=== PATIENT | male | born 1980 | race African-American/Black ===

== ENCOUNTER 2023-11-20 10:01 | Inpatient (IN) ==
--- NOTE | 2023-11-20 10:35 | Emergency Department Note ---
Impression & Plan Hypertensive urgency, Acute hypokalemia, Heart palpitations ED Provider Note NAME: ALANA TANG AGE: 43 SEX: M : 1980 ARRIVES VIA: Walk-In INFORMANT: Patient, the patient's significant other ED PROVIDER(S): Grey Blanco DO CHIEF COMPLAINT: Palpitations HPI: The patient is a 43-year-old male who presented to the emergency department for an evaluation of hypertension and palpitations. The patient's had symptoms over the course of the last few days. He does have a history of hypertension which is not well-controlled especially recently. He was seen in our facility yesterday for similar complaints. At that time he had his lisinopril increased to 20 mg a day and he had metoprolol succinate 25 mg added at night. He has been compliant with this medication regimen but only had 1 dose of the beta- wenceslao so far. He denies having any headache. He does describe palpitations and some anterior chest pain. The patient has not been seen by his family doctor for the symptoms. ROS: See above HPI for pertinent positives & negatives. A total of 10 systems reviewed and were otherwise negative. PAST MEDICAL HISTORY: See Below PAST SURGICAL HISTORY: See Below FAMILY HISTORY: See Below SOCIAL HISTORY: See Below HOME MEDICATIONS: See Below ALLERGIES: See Below VITALS: See Below PHYSICAL EXAMINATION: GENERAL: The patient is awake and alert. He is somewhat anxious appearing. EYES: The conjunctivae are clear. The pupils are round and reactive. EARS, NOSE, MOUTH AND THROAT: The nose is without any evidence of any deformity. Mucous membranes are moist. Tongue is midline. NECK: The neck is nontender and supple. RESPIRATORY: Normal respiratory effort is noted there is no evidence of wheezing rhonchi or rales CARDIOVASCULAR: Regular rate and rhythm noted there no murmurs rubs or gallops normal S1 normal S2. GASTROINTESTINAL: The abdomen is soft. Abdomen is nontender. MUSCULOSKELETAL/EXTREMITIES: There is no evidence of gross deformity full range of motion is noted in the hips and shoulders. SKIN: There is no obvious evidence of any rash. There are no petechiae, pallor or cyanosis noted. NEUROLOGIC: Patient is awake alert and oriented x3 strength is symmetric patellar reflexes are 2+ bilaterally MEDICAL DECISION MAKING: The patient is a 43-year-old male who presented to the emergency department for an evaluation of elevated blood pressure. The patient does not have any focal neurologic deficits. EKG showed no significant ischemic changes compared to yesterday. I discussed the patient's laboratory and radiographic studies with him. He was treated with multiple doses of antihypertensive medication in the emergency department. He continues to have elevated blood pressure although his symptoms are somewhat improved. For this reason I discussed his condition with the [facility] They have agreed to evaluate the patient in the emergency department further management disposition. Triage Nursing notes reviewed. Prior medical records reviewed Vital Signs: reviewed and remarkable for elevated blood pressure. Differential diagnosis: Cardiac ischemia, aortic dissection, pulmonary embolism, pneumothorax, pneumonia, pericarditis, myocarditis, esophageal rupture, GERD, cholecystitis, pancreatitis, musculoskeletal, as well as other pathologies. ER treatment provided: See below Diagnostics interpreted by me: ECG: EKG was obtained in the emergency department. My interpretation is normal sinus rhythm at 86 bpm. LVH was noted by voltage criteria with nonspecific ST segment abnormalities. This was compared to a tracing from November 19, 2023. No changes were noted. Cardiac Monitoring: An order was placed for continuous cardiac monitoring. The monitor shows a rate of 75 bpm with sinus rhythm. Laboratory studies: As stated above and show below. Imaging studies: See below. Radiographic imaging was reviewed by myself Consultation(s): I discussed this case with [place] who is on-call for the [facility]. ED COURSE: Procedures: none Critical Care: I have personally spent greater than 35 minutes of critical care time in the direct management of this patient. This includes bedside care, interpretation of diagnostic studies, and testing, discussion with consultants, patient, and family members, and other required patient management activities. This 35 minutes is in excess of all separately billable procedures. Past Med/Surg History Medical History Heart palpitations Hypertension Social History Smoking Status: Never smoker Feels Safe at Home: Yes Allergies Allergies Allergy/AdvReac Type Severity Reaction Status Date / Time No Known Allergies Allergy Unverified 11/19/23 11:54 Home Meds Home Medications Medication Instructions Recorded Confirmed lisinopril 10 mg tablet 20 mg PO QAM 11/19/23 11/20/23 magnesium 250 mg tablet 250 mg PO HS 11/19/23 11/20/23 multivitamin 1 tab PO QAM 11/19/23 11/20/23 lisinopril 20 mg tablet 0 mg PO DAILY 11/20/23 11/20/23 Previous Rx's Medication Instructions Recorded metoprolol succinate 25 mg 25 mg PO QPM 16 days #16 tabs 11/19/23 tablet,extended release 24 hr Results & Data (ED) Vital Signs Vital Signs - 24 hr 11/20/23 10:05 11/20/23 10:26 11/20/23 10:30 Temperature 36.6 C Temperature Source Temporal Artery Scan Pulse Rate 92 H 83 79 Pulse Rate [Right Finger] Pulse Rate from SpO2 Sensor 79 Pulse Rhythm Pulse Rhythm [Right Finger] Pulse Strength [Right Finger] Respiratory Rate 20 17 Respiratory Effort / Characteristics Non-Labored Respiratory Depth Normal Blood Pressure 228/133 H 190/127 H Blood Pressure [Left Arm] Blood Pressure Mean 164 148 Blood Pressure Mean [Left Arm] Blood Pressure Position [Left Arm] Pulse Oximetry 97 97 Oxygen Delivery Method Room Air Sepsis Recent Fever Within 48 Hours No Sepsis New/Unexplained Change in Mental Status No Sepsis Action Taken by Nursing No Action Required 11/20/23 10:54 11/20/23 10:54 11/20/23 11:07 Temperature Temperature Source Pulse Rate 85 78 Pulse Rate [Right Finger] Pulse Rate from SpO2 Sensor 85 Pulse Rhythm Pulse Rhythm [Right Finger] Pulse Strength [Right Finger] Respiratory Rate 20 Respiratory Effort / Characteristics Respiratory Depth Blood Pressure 214/131 H 214/131 H 191/134 H Blood Pressure [Left Arm] Blood Pressure Mean 158 158 153 Blood Pressure Mean [Left Arm] Blood Pressure Position [Left Arm] Pulse Oximetry 95 Oxygen Delivery Method Sepsis Recent Fever Within 48 Hours Sepsis New/Unexplained Change in Mental Status Sepsis Action Taken by Nursing 11/20/23 12:00 11/20/23 12:00 11/20/23 12:01 Temperature Temperature Source Pulse Rate 88 85 Pulse Rate [Right Finger] Pulse Rate from SpO2 Sensor 89 85 Pulse Rhythm Pulse Rhythm [Right Finger] Pulse Strength [Right Finger] Respiratory Rate 14 20 Respiratory Effort / Characteristics Respiratory Depth Blood Pressure 192/126 H 204/129 H Blood Pressure [Left Arm] Blood Pressure Mean 148 163 Blood Pressure Mean [Left Arm] Blood Pressure Position [Left Arm] Pulse Oximetry 94 97 Oxygen Delivery Method Sepsis Recent Fever Within 48 Hours Sepsis New/Unexplained Change in Mental Status Sepsis Action Taken by Nursing 11/20/23 12:01 11/20/23 12:03 11/20/23 12:03 Temperature Temperature Source Pulse Rate 81 Pulse Rate [Right Finger] Pulse Rate from SpO2 Sensor 86 Pulse Rhythm Pulse Rhythm [Right Finger] Pulse Strength [Right Finger] Respiratory Rate 18 Respiratory Effort / Characteristics Respiratory Depth Blood Pressure 208/127 H 181/120 H Blood Pressure [Left Arm] Blood Pressure Mean 166 139 Blood Pressure Mean [Left Arm] Blood Pressure Position [Left Arm] Pulse Oximetry 96 Oxygen Delivery Method Sepsis Recent Fever Within 48 Hours Sepsis New/Unexplained Change in Mental Status Sepsis Action Taken by Nursing 11/20/23 12:09 11/20/23 12:22 11/20/23 12:25 Temperature Temperature Source Pulse Rate 70 69 85 Pulse Rate [Right Finger] Pulse Rate from SpO2 Sensor 83 Pulse Rhythm Pulse Rhythm [Right Finger] Pulse Strength [Right Finger] Respiratory Rate 16 Respiratory Effort / Characteristics Respiratory Depth Blood Pressure 181/120 H 170/111 H 172/112 H Blood Pressure [Left Arm] Blood Pressure Mean 132 Blood Pressure Mean [Left Arm] Blood Pressure Position [Left Arm] Pulse Oximetry 95 Oxygen Delivery Method Sepsis Recent Fever Within 48 Hours Sepsis New/Unexplained Change in Mental Status Sepsis Action Taken by Nursing 11/20/23 13:00 11/20/23 13:18 11/20/23 13:33 Temperature Temperature Source Pulse Rate 79 69 75 Pulse Rate [Right Finger] Pulse Rate from SpO2 Sensor 77 Pulse Rhythm Pulse Rhythm [Right Finger] Pulse Strength [Right Finger] Respiratory Rate 14 Respiratory Effort / Characteristics Respiratory Depth Blood Pressure 178/121 H 170/111 H 175/111 H Blood Pressure [Left Arm] Blood Pressure Mean 140 Blood Pressure Mean [Left Arm] Blood Pressure Position [Left Arm] Pulse Oximetry 95 Oxygen Delivery Method Sepsis Recent Fever Within 48 Hours Sepsis New/Unexplained Change in Mental Status Sepsis Action Taken by Nursing 11/20/23 13:56 11/20/23 13:56 11/20/23 13:57 Temperature 36.6 C Temperature Source Oral Pulse Rate 75 Pulse Rate [Right Finger] 75 Pulse Rate from SpO2 Sensor Pulse Rhythm Regular Pulse Rhythm [Right Finger] Regular Pulse Strength [Right Finger] Normal Respiratory Rate 20 14 Respiratory Effort / Characteristics Non-Labored Respiratory Depth Normal Blood Pressure Blood Pressure [Left Arm] 175/111 H Blood Pressure Mean Blood Pressure Mean [Left Arm] 132 Blood Pressure Position [Left Arm] Semi-fowlers Pulse Oximetry 98 95 98 Oxygen Delivery Method Room Air Room Air Room Air Sepsis Recent Fever Within 48 Hours Sepsis New/Unexplained Change in Mental Status Sepsis Action Taken by Custodial Medications Current Medication List: was personally reviewed by me Laboratory Data Attestation: I reviewed the patient's lab results. 11/20/23 10:29 11/20/23 10:29 Lab Results 11/20/23 Range/Units 10:29 WBC 5.32 (4.8-10.8) K/ul RBC 5.54 (4.70-6.10) M/uL Hgb 15.9 (14.0-18.0) g/dl Hct 46.2 (42.0-52.0) % MCV 83.4 (80.0-100.0) fL MCH 28.7 (25.0-34.0) pg MCHC 34.4 (32.0-36.0) g/dL RDW Std Deviation 41.2 (36.4-46.3) fL RDW Coeff of Omid 13.5 (11.5-14.5) % Plt Count 223 (130-400) K/uL MPV 9.0 L (9.4-12.4) fL Immature Gran % (Auto) 0.2 % Neut % (Auto) 74.4 % Lymph % (Auto) 16.5 % [place] % (Auto) 7.9 % Eos % (Auto) 0.8 % Baso % (Auto) 0.2 % Neut # (Auto) 3.96 (1.40-6.50) K/uL Lymph # (Auto) 0.88 L (1.20-3.40) K/uL [place] # (Auto) 0.42 (0.11-0.59) K/uL Eos # (Auto) 0.04 (0.00-0.50) K/uL Baso # (Auto) 0.01 (0.00-0.20) K/uL Immature Gran # (Auto) 0.01 (0.01-0.20) K/uL Sodium 137 (136-145) mmol/L Potassium 3.2 L (3.5-5.1) mmol/L Chloride 101 (98-107) mmol/L Carbon Dioxide 28 (21-32) mmol/L Anion Gap 8 (3-11) BUN 10 (6-23) mg/dl Creatinine 1.05 (0.6-1.4) mg/dl Est Cr Clr Drug Dosing 123.7 ml/min Est GFR ( Amer) 101.0 ml/min Est GFR (Non-Af Amer) 87.1 ml/min BUN/Creatinine Ratio 9.5 L (10-20) Glucose 106 H (70-99(Fasting)) mg/dl Calcium 9.6 (8.6-10.3) mg/dl Total Bilirubin 0.6 (0.2-1.0) mg/dl AST 38 (13-39) U/L ALT 36 (7-52) U/L Alkaline Phosphatase 95 (34-104) U/L Troponin I High Sens 18.1 (0-20) pg/ml Total Protein 8.0 (6.0-8.3) gm/dl Albumin 4.5 (3.4-5.0) gm/dl Globulin 3.5 (2.5-4.0) gm/dl Albumin/Globulin Ratio 1.3 (0.9-2) Lipase 10 L (11-82) U/L Administered Medications Discontinued Medications Labetalol HCl (Labetalol Hcl Iv 5 Mg/Ml 20ml) 20 mg IV NOW STA Stop: 11/20/23 12:03 Last Admin: 11/20/23 12:09 Dose: 20 mg Documented By: HOLLY Co-signed By: JAMIE Labetalol HCl (Labetalol Hcl Iv 5 Mg/Ml 20ml) 10 mg IV NOW STA Stop: 11/20/23 12:54 Last Admin: 11/20/23 13:18 Dose: 10 mg Documented By: JAMIE Co-signed By: CHAD Lorazepam (Lorazepam 1 Mg/1 Ml Syr Ed Inj Use) 1 mg IV ONE STA Stop: 11/20/23 10:24 Last Admin: 11/20/23 10:55 Dose: 1 mg Documented By: JAMIE Imaging Data Attestation: I personally reviewed and interpreted this imaging study as follows: My Impression: 1 view chest x-ray was obtained in the emergency department. My interpretation is no free air or definite infiltrate, final report below. CT of the head was obtained in the emergency department. My interpretation is no intracranial hemorrhage or mass effect, final report below Radiologist's Impression: Chest X-Ray 11/20/23 10:13 XR chest 1V portable CLINICAL HISTORY: Chest pain, nonspecific TECHNIQUE: Single frontal radiograph of the chest was obtained. Comparison: Comparison is made to chest radiograph 11/19/2023 FINDINGS: No lines and tubes are seen. The cardiomediastinal silhouette is normal. The lungs are clear. No evidence of pleural effusion or pneumothorax. IMPRESSION: No acute chest disease. ACT 112: Negative or not required by law. Electronically signed by: Reji Sol M.D. 11/20/2023 11:[address] 11/20/23 10:24 CT SCAN OF THE BRAIN WITHOUT IV CONTRAST CLINICAL HISTORY: Dizziness. COMPARISON STUDY: No priors. TECHNIQUE: Unenhanced axial CT scan of the brain is performed from the vertex to the skull base. A dose lowering technique was utilized adhering to the principles of ALARA. CT DOSE: 703.85 mGy.cm FINDINGS: Brain parenchyma: The brain parenchyma is normal in appearance. There is no hemorrhage, mass effect, or evidence of acute territorial ischemia by CT criteria. Pike-white matter differentiation is preserved. No extra-axial fluid collection is seen. Ventricles, sulci, cisterns: Normal in configuration. Intracranial vasculature: The visualized intracranial vasculature at the skull base is normal in appearance. Calvarium: Unremarkable. Sinuses and mastoids: The visualized paranasal sinuses are clear. The mastoid air cells are well pneumatized. Orbits: The bony orbits are grossly intact. IMPRESSION: No acute intracranial abnormality. ACT 112: Negative or not required by law. Electronically signed by: Trever Mcgill M.D. 11/20/2023 11:27 AM Discharge Plan Visit Data Chief Complaint: Chest Pain Stated Complaint: CHEST PAINS, TROUBLE BREATHING ED Provider: Grey Blanco Discharge Problem: Hypertensive urgency, Acute hypokalemia, Heart palpitations Patient Disposition: Being Evaluated by Hospitalist Forms Stand Alone Forms: My [employer] Prescriptions Prescriptions: No Action multivitamin Tablet 1 tab PO QAM lisinopril 10 mg tablet 20 mg PO QAM Rx Instructions: taking two 10 mg tablets for 20 mg dose total until they [employer] his new script for 20 mg daily. magnesium 250 mg Tablet 250 mg PO HS metoprolol succinate 25 mg tablet extended release 24 hr 25 mg PO QPM 16 Days Qty: 16 0RF Patient Comments: Per , in 2019 PCP had pt on chlorthalidone 25 mg, pt took for awhile and bp went back down to normal. Rx Instructions: Per , pt started feeling bad again after taking medication last night. lisinopril 20 mg tablet 0 mg PO DAILY Rx Instructions: hasnt picked up yet. Referrals Referrals: PCP,NO [Physician] -
[2023-11-20 10:53] LABS: Basophils # (auto) 0.01 K/uL (0.00-0.20); Basophils % (auto) 0.2 %; Eosinophils # (auto) 0.04 K/uL (0.00-0.50); Eosinophils % (auto) 0.8 %; Hematocrit (blood only) 46.2 % (42.0-52.0); Hemoglobin 15.9 g/dl (14.0-18.0); Immature Granulocytes # (auto) 0.01 K/uL (0.01-0.20); Immature Granulocytes % (auto) 0.2 %; Lymphocytes # (auto) 0.88 K/uL (1.20-3.40); Lymphocytes % (auto) 16.5 %; Mean Corpuscular Hemoglobin 28.7 pg (25.0-34.0); Mean Corpuscular Hgb Conc 34.4 g/dL (32.0-36.0); Mean Corpuscular Volume 83.4 fL (80.0-100.0); Monocytes # (auto) 0.42 K/uL (0.11-0.59); Monocytes % (auto) 7.9 %; Neutrophils # (auto) 3.96 K/uL (1.40-6.50); Neutrophils % (auto) 74.4 %; Platelet Count 223 K/uL (130-400); RDW Coefficient of Variation 13.5 % (11.5-14.5); RDW Standard Deviation 41.2 fL (36.4-46.3); Red Blood Count 5.54 M/uL (4.70-6.10); White Blood Count 5.32 K/ul (4.8-10.8)
[2023-11-20] MEDS: LORazepam 1 MG/1 ML SYR ED Inj Use IV STA (10:55)
--- NOTE | 2023-11-20 11:10 | XRay Report ---
XR chest 1V portable CLINICAL HISTORY: Chest pain, nonspecific TECHNIQUE: Single frontal radiograph of the chest was obtained. Comparison: Comparison is made to chest radiograph 11/19/2023 FINDINGS: No lines and tubes are seen. The cardiomediastinal silhouette is normal. The lungs are clear. No evid ence of pleural effusion or pneumothorax. IMPRESSION: No acute chest disease. ACT 112: Negative or not required by law. Electronically signed by: Reji Sol M.D. 11/20/2023 11:09 AM
[2023-11-20 11:13] LABS: Albumin Globulin Ratio 1.3 (0.9-2); Albumin Level 4.5 gm/dl (3.4-5.0); BUN Creatinine Ratio 9.5 (10-20); Bilirubin,Total 0.6 mg/dl (0.2-1.0); Calcium 9.6 mg/dl (8.6-10.3); Creatinine Clr Calc Pharmacy 123.7 ml/min; Est GFR (Non-African American) 87.1 ml/min; Globulin 3.5 gm/dl (2.5-4.0); Potassium 3.2 mmol/L (3.5-5.1)
[2023-11-20 11:16] LABS: Troponin I High Sensitivity 18.1 pg/ml (0-20)
--- NOTE | 2023-11-20 11:29 | CT Scan Report ---
CT SCAN OF THE BRAIN WITHOUT IV CONTRAST CLINICAL HISTORY: Dizziness. COMPARISON STUDY: No priors. TECHNIQUE: Unenhanced axial CT scan of the brain is performed from the vertex to the skull base. A d ose lowering technique was utilized adhering to the principles of ALARA. CT DOSE: 703.85 mGy.cm FINDINGS: Brain parenchyma: The brain parenchyma is normal in appearance. There is no hemorrhage, mass effect, or evidence of acute territorial ischemia by CT criteria. Pike-white matter differentiation is preser taz. No extra-axial fluid collection is seen. Ventricles, sulci, cisterns: Normal in configuration. Intracranial vasculature: The visualized intracranial vasculature at the skull base is normal in appe arance. Calvarium: Unremarkable. Sinuses and mastoids: The visualized paranasal sinuses are clear. The mastoid air cells are well pneu matized. Orbits: The bony orbits are grossly intact. IMPRESSION: No acute intracranial abnormality. ACT 112: Negative or not required by law. Electronically signed by: Trever Mcgill M.D. 11/20/2023 11:27 AM
[2023-11-20] MEDS: LABETALOL HCL IV 5 MG/ML 20ML IV STA ×3 (12:09→21:21)
[2023-11-20] MEDS: hydrALAZINE HCL 20 MG/ML VIAL IV ONE (14:04)
--- NOTE | 2023-11-20 14:05 | History & Physical Report ---
Date of Service November 20, 2023 Assessment & Plan (1) Heart palpitations: (2) Hypertensive urgency: Plan: - Admit to tele for observation for r/o - Trend cardiac biomarkers, initial set was negative - EKG reviewed showing NSR, no previous EKG to compare to - Check 2 D echo and renal US to r/o renal artery stenosis causing HTN - Troponin from 11/18 of 18, again today 11/19 is 18, negative - Today in the ER the patient received labetalol IV 20 mg and 10 mg IV, hydralazine 5 mg once, and Ativan 1 mg IV. His blood pressure remains elevated once 168/117, will apply Nitropaste 0.5 inch. - Will start the patient on chlorthalidone 25 mg QAM and continue lisinopril 20 mg QAM - Patient was given a prescription for metoprolol 25 mg yesterday, x 1 reports that he did not feel well after taking it last evening--instead of metoprolol would consider propranolol for anxiety and the symptom of palpitations at night if there is no improvement with this medication regimen above. - Consider cardiology consultation - pt may require outpt zio patch monitor after discharge (3) Anxiety: Plan: - Would recommend outpatient counselor/therapist if there are no cardiac causes for such - Consider propranolol as above (4) Acute hypokalemia: Plan: - 3.2 on admission, replace via PO with 40 meq now, trend with am labs - Pt may need supplementation upon discharge (5) Obesity (BMI 30.0-34.9): Plan: - Pt physically fit, encourage continuation of exercise and diet - BMI of 32.6 DVT ppx: teds, scds Lines: 1 PIV FEN/GI: Heart healthy diet CODE: Full code Dispo: From home, likely to remain in the hospital x 1-2 days A total of 77 minutes were spent with greater than 50% of that time face to face with the patient, personally reviewing all current laboratories, imaging studies, past medication reconciliation, outpatient chart review, and discussion with specialists to collaborate care for the patient with attending. Please see attending documentation for corrections and/or additions. History of Present Illness Chief Complaint: Chest pain, palpitations Primary Care Provider: Jayson Casanova MD This is a 43 yo M with PMHx of obesity with BMI of 32, hypertension, who presents to the hospital with complaints of palpitation for the past few days. Pt was here in the ER yesterday where EKG was completed, BP was elevated, and pt was treated with lisinopril 20 mg and metoprolol succinate 25 mg QPM to help with palpitation sensation, and was discharged home. He is also previously prescribed chlorthalidone as outpatient years ago but is not taking this currently. 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 He reports "I feel like I am having a panic attack" during my interview. He states that his chest palpitations and heaviness last for about 1 minute earlier this morning dealing with stressful conversation at home, at that point he felt nauseous but did not vomit, patient went to a quieter space and did deep breathing and it resolved. He states that specifically has had palpitations in the past 4 days and is unable to sleep due to such. He reports having started to exercise and eat healthier since August, he is currently able to run 4 miles every other day on a treadmill with a running 5-minute walk 5-minute pattern for at least 40 minutes. He denies ever having any chest pain, palpitations or shortness of breath during these exercise routines. He does not smoke tobacco or marijuana, no illicit drug use, no alcohol use. Patient reports being told he had high blood pressure in his early 30s but was not on chronic blood pressure medication. He also notes that he has multiple family members with high blood pressure and they are maintained on medicine. Denies any primary relatives with SD/stroke. In regards to his anxiety, patient feels that this is acutely stressful right now, he has never been on any medication for anxiety or panic attack in the past. Patient denies anhedonia, suicidal or homicidal ideation. We discussed having a therapist versus a counselor at bedside, and he is open to the idea of discussion with licensed therapist/professional for being able to discuss his stressful life situations without affecting his spouse or his children. Allergies Allergy/AdvReac Type Severity Reaction Status Date / Time No Known Allergies Allergy Unverified 11/19/23 11:54 Home Medications Medication Instructions Recorded Confirmed Type lisinopril 10 mg tablet 20 mg PO QAM 11/19/23 11/20/23 History magnesium 250 mg tablet 250 mg PO HS 11/19/23 11/20/23 History metoprolol succinate 25 mg 25 mg PO QPM 16 days #16 tabs 11/19/23 11/20/23 Rx tablet,extended release 24 hr multivitamin 1 tab PO QAM 11/19/23 11/20/23 History Past Med/Surg History Medical History Heart palpitations Hypertension Family History Other Hypertension Social History (Updated 11/20/23 @ 15:14 by Latrice Cantor PA-C) Smoking Status: Never smoker Second Hand Exposure: No; Do You Dip or Chew Tobacco: No; Tobacco Cessation Education Requested by Patient: No Hx Alcohol Use: Yes Alcohol type: beer Hx Substance Use: No Preferred Language: Georgian Communication Ability: Effective Telegraph Office Telephone Clerk Required: No Beliefs That Will Affect Care: None Current Living Situation: Spouse and Family Other Information That Helps Us Care for You: No Feels Safe at Home: Yes Safety Concerns: Feels Safe At This Time Assistive Devices: Glasses Review of Systems Review of Systems: Constitutional: No fever, sweats or chills Eyes: No diplopia, no worsening or blurred vision ENT: normal hearing, no trouble swallowing Respiratory: No cough, sputum, dyspnea at rest or on exertion Cardiovascular: As per HPI, + palpitations Abdomen: No pain, + nausea with palpitations this morning, none currently no vomiting, diarrhea or constipation Musculoskeletal: No joint pain, calf pain, swelling Neurologic: No weakness, numbness/tingling, or balance problems Psychiatric: No anxiety or depression Skin: No rash or itch Physical Exam Physical Exam: General: awake, alert, no apparent distress, physically fit black male Head: Normocephalic, atraumatic ENT: PERRL, EOMI, no pharyngeal exudate, mucous membranes moist Chest: Clear to auscultation, on room air, no adventitious breath sounds Cardiac: Regular rate and rhythm, few extra beats, no murmur, no JVD, normal peripheral pulses, good capillary refill Abdominal: NABS x 4 quadrants, soft, nondistended, nontender to palpation, no rebound or guarding Extremities: Normal inspection, no peripheral edema or erythema, calfs nontender to palpation Psych: Normal mood and affect Neuro: AAO x 3, strength intact bilaterally and rated 5/5, no motor deficits, speech is clear, no peripheral sensory deficits Results & Data Results & Data Vital Signs (Past 12 Hours) Vital Signs Temp Pulse Pulse Resp BP BP Pulse Ox 11/20/23 13:57 98 11/20/23 13:56 36.6 C 75 14 175/111 H 95 11/20/23 13:56 75 20 98 11/20/23 13:33 75 175/111 H 11/20/23 13:18 69 170/111 H 11/20/23 13:00 79 14 178/121 H 95 11/20/23 12:25 85 16 172/112 H 95 11/20/23 12:22 69 170/111 H 11/20/23 12:09 70 181/120 H 11/20/23 12:03 81 18 96 11/20/23 12:03 181/120 H 11/20/23 12:01 208/127 H 11/20/23 12:01 85 20 97 11/20/23 12:00 204/129 H 11/20/23 12:00 88 14 192/126 H 94 11/20/23 11:07 78 191/134 H 11/20/23 10:54 85 20 214/131 H 95 11/20/23 10:54 214/131 H 11/20/23 10:30 79 17 190/127 H 97 11/20/23 10:26 83 11/20/23 10:05 36.6 C 92 H 20 228/133 H 97 O2 Del Method 11/20/23 13:57 Room Air 11/20/23 13:56 Room Air 11/20/23 13:56 Room Air 11/20/23 13:33 11/20/23 13:18 11/20/23 13:00 11/20/23 12:25 11/20/23 12:22 11/20/23 12:09 11/20/23 12:03 11/20/23 12:03 11/20/23 12:01 11/20/23 12:01 11/20/23 12:00 11/20/23 12:00 11/20/23 11:07 11/20/23 10:54 11/20/23 10:54 11/20/23 10:30 11/20/23 10:26 11/20/23 10:05 Room Air Laboratory Results 11/20/23 10:29 WBC 5.32 RBC 5.54 Hgb 15.9 Hct 46.2 MCV 83.4 MCH 28.7 MCHC 34.4 RDW Std Deviation 41.2 RDW Coeff of Omid 13.5 Plt Count 223 MPV 9.0 L Immature Gran % (Auto) 0.2 Neut % (Auto) 74.4 Lymph % (Auto) 16.5 [place] % (Auto) 7.9 Eos % (Auto) 0.8 Baso % (Auto) 0.2 Neut # (Auto) 3.96 Lymph # (Auto) 0.88 L [place] # (Auto) 0.42 Eos # (Auto) 0.04 Baso # (Auto) 0.01 Immature Gran # (Auto) 0.01 Sodium 137 Potassium 3.2 L Chloride 101 Carbon Dioxide 28 Anion Gap 8 BUN 10 Creatinine 1.05 Est Cr Clr Drug Dosing 123.7 Est GFR ( Amer) 101.0 Est GFR (Non-Af Amer) 87.1 BUN/Creatinine Ratio 9.5 L Glucose 106 H Calcium 9.6 Total Bilirubin 0.6 AST 38 ALT 36 Alkaline Phosphatase 95 Troponin I High Sens 18.1 Total Protein 8.0 Albumin 4.5 Globulin 3.5 Albumin/Globulin Ratio 1.3 Lipase 10 L Diagnostic Findings Chest X-Ray 11/20/23 10:13 XR chest 1V portable CLINICAL HISTORY: Chest pain, nonspecific TECHNIQUE: Single frontal radiograph of the chest was obtained. Comparison: Comparison is made to chest radiograph 11/19/2023 FINDINGS: No lines and tubes are seen. The cardiomediastinal silhouette is normal. The lungs are clear. No evidence of pleural effusion or pneumothorax. IMPRESSION: No acute chest disease. ACT 112: Negative or not required by law. Electronically signed by: Reji Sol M.D. 11/20/2023 11:[address] 11/20/23 10:24 CT SCAN OF THE BRAIN WITHOUT IV CONTRAST CLINICAL HISTORY: Dizziness. COMPARISON STUDY: No priors. TECHNIQUE: Unenhanced axial CT scan of the brain is performed from the vertex to the skull base. A dose lowering technique was utilized adhering to the principles of ALARA. CT DOSE: 703.85 mGy.cm FINDINGS: Brain parenchyma: The brain parenchyma is normal in appearance. There is no hemorrhage, mass effect, or evidence of acute territorial ischemia by CT criteria. Pike-white matter differentiation is preserved. No extra-axial fluid collection is seen. Ventricles, sulci, cisterns: Normal in configuration. Intracranial vasculature: The visualized intracranial vasculature at the skull base is normal in appearance. Calvarium: Unremarkable. Sinuses and mastoids: The visualized paranasal sinuses are clear. The mastoid air cells are well pneumatized. Orbits: The bony orbits are grossly intact. IMPRESSION: No acute intracranial abnormality. ACT 112: Negative or not required by law. Electronically signed by: Trever Mcgill M.D. 11/20/2023 11:27 AM Code Status & VTE Plan Code Status Full code-discussed with patient at bedside Supervising Physician Co-Signing Physician Notes Pt was seen and examined by myself, Miya Stratton MD on the day of service. Care was coordinated with Latrice Cantor PA-C. 43yo pleasant gentleman seen with and family at bedside. Notes he has been having episodes of fluttering in his chest, has chronic Hx of HTN but stopped taking his home chlorthalidone once they noted at home that his BPs were controlled on it. Was also found to be in hypertensive urgency. Believe he had a reaction to METOPROLOL AND LISINOPRIL, does not want to use these meds. They note that life at home can be a bit stressful, pt questioning whether he is having panic attacks. Hypertensive urgency- ekg, echo, renal US, consider nephrology consult. pt and agreeable to re-starting home chlorthalidone, noting it worked for them. Do not want an JOSE/ARB. Titrate dose as needed, consider addition of Calcium channel wenceslao if needed. Consider consult to Nephrology if persistently uncontrolled. On nitropaste acutely as well, pt states he has been on multiple medications recently and nothing seems to be working.. Palpitations: possibly in setting of above, vs anxiety component. Has been receiving doses of prn Ativan, consider mcc medication option such as an SSRI. Telemetry monitoring, will likely need a Zio patch on discharge. Cardiology consult recommended for further evaluation. Otherwise as above. I spent a total [id number] coordinating, documenting, and providing care for this patient excluding time spent in the performance of separately billed services
[2023-11-20] MEDS ORDERED: NITROGLYCERIN 2% OINTMENT 30GM TUBE EXT STA (15:13)
[2023-11-20] MEDS ORDERED: POTASSIUM CHLORIDE CRTAB 20 MEQ TABCR PO STA (15:22)
--- NOTE | 2023-11-20 16:15 | Electrocardiogram Report ---
Test Reason : Blood Pressure : / mmHG Vent. Rate : 090 BPM Atrial Rate : 090 BPM P-R Int : 174 ms QRS Dur : 088 ms QT Int : 358 ms P-R-T Axes : 031 -24 099 degrees QTc Int : 437 ms Normal sinus rhythm Possible Left atrial enlargement Left ventricular hypertrophy ( R in aVL ) T wave abnormality, consider lateral ischemia Abnormal ECG When compared with ECG of 19-NOV-2023 08:30, No significant change Confirmed by Grey Downing ([id number]) on 11/20/2023 4:14:58 PM Referred By: Jayson Casanova Confirmed By:Grey Downing
[2023-11-20] MEDS ORDERED: ONDANSETRON INJ 2 MG/ML 2 ML VIAL IV PRN (17:01)
[2023-11-20] MEDS: NITROGLYCERIN 2% OINTMENT 30GM TUBE EXT SCH (17:37)
[2023-11-20] MEDS: POTASSIUM CHLORIDE CRTAB 20 MEQ TABCR PO STA (17:37)
--- NOTE | 2023-11-20 17:47 | Ultrasound Report ---
US duplex renal artery CLINICAL HISTORY: Eval for cause of HTN COMPARISON STUDY: No previous studies for comparison. TECHNIQUE: Color and duplex Doppler sonography of the abdominal aorta and renal arteries was yunior d. FINDINGS: Peak systolic velocity within the abdominal aorta was 104 cm/s. The proximal right renal ar star was obscured. The peak systolic velocity within visualized portions of the right renal artery wa s 66 cm/s. Peak systolic velocity within the left renal artery was 100 cm/s. Segmental waveforms with in the kidneys were normal. Renal veins were patent. Exam is compromised by suboptimal penetration. IMPRESSION: Technically nondiagnostic evaluation for renal artery stenosis given obscuration of the proximal right renal artery. No elevated velocities within visualized portions of the renal arteries. ACT 112: Negative or not required by law. Electronically signed by: Tomas Davis M.D. 11/20/2023 5:44 PM
[2023-11-20] MEDS: CHLORTHALIDONE 25 MG TAB PO STA (18:08)
[2023-11-20] MEDS ORDERED: NITROGLYCERIN 2% OINTMENT 30GM TUBE EXT SCH (21:00)
[2023-11-20] MEDS: LORazepam 0.5 MG TAB PO STA (21:08)
[2023-11-20] MEDS: POTASSIUM CHLORIDE CRTAB 20 MEQ TABCR PO SCH (21:08)
[2023-11-20] MEDS: ACETAMINOPHEN 325 MG TAB PO PRN (21:12)
[2023-11-21] MEDS ORDERED: LORazepam 0.5 MG in SYRINGE 0.25 ML IV PRN (05:44)
[2023-11-21 07:03] LABS: Hematocrit (blood only) 43.3 % (42.0-52.0); Hemoglobin 15.3 g/dl (14.0-18.0); Mean Corpuscular Hgb Conc 35.3 g/dL (32.0-36.0); Mean Corpuscular Volume 82.2 fL (80.0-100.0); Mean Platelet Volume 9.6 fL (9.4-12.4); Platelet Count 237 K/uL (130-400); RDW Coefficient of Variation 13.7 % (11.5-14.5); RDW Standard Deviation 40.8 fL (36.4-46.3); Red Blood Count 5.27 M/uL (4.70-6.10); White Blood Count 4.71 K/ul (4.8-10.8)
[2023-11-21 07:28] LABS: BUN Creatinine Ratio 9.7 (10-20); Calcium 9.5 mg/dl (8.6-10.3); Chol HDL Ratio 4.3 (0-5); Creatinine Clr Calc Pharmacy 89.2 ml/min; Est GFR (African American) 68.9 ml/min; Est GFR (Non-African American) 59.5 ml/min; Potassium 3.3 mmol/L (3.5-5.1)
[2023-11-21 07:54] LABS: Estimated Average Glucose 108 mg/dl; Hemoglobin A1C 5.4 % (4.5-5.6)
[2023-11-21] MEDS: CHLORTHALIDONE 25 MG TAB PO SCH (08:48)
[2023-11-21] MEDS: NIFEdipine EXTENDED REL 30 MG TABCR PO SCH (08:52)
[2023-11-21] MEDS ORDERED: CHLORTHALIDONE 25 MG TAB PO SCH (09:00)
[2023-11-21] MEDS ORDERED: lisinopril 20 MG TAB PO SCH (09:00)
--- NOTE | 2023-11-21 09:03 | Nephrology Consultation ---
Date of Consultation November 21, 2023 Assessment & Plan (1) Hypertensive urgency: uncontrolled HTN w/ palpitations and anxiety; also w/ spontaneous /inappropriate hypokalemia and on ECG w/ LVH; will work to complete or at least start evaluation for end organ damage and consider given hypokalemia secondary causes. would not call this resistant HTN just yet and likely will not be able to parse that dx this admission but once anxiety controlled. -TTE notable for moderate CLVH -prot/creat ordered though will be abnormal w/ HTN -have ordered spot cecilia/renin ratio and saline suppression test to eval for aldosteronism this am but he refused labs >> explained rationale to pt > will have AM labs drawn tomorrow at 0800 and plan 4 hrs fluids and recheck labs after >continue nifedipine but dose increased to 90 mg daily today; continue coreg in lieu of metoprolol but dose increased to 25 mg bid today; continue standing K and increased to bid 40 mEq; continue chlorthalidone for now >recommend prn labetalol and hydralazine > ordered labetalol 10 mg IV q2h prn sbp > 160 and hold for HR <100; prn hdyralazine 10 mg IV q4h for sbp > 180 or if HR <100 for sbp > 160 >>>avoid spironolactone for now as it interferes w/ testing that will/must be done in AM -check TSH -monitor carefully for etoh w/drawal >>treat anxiety acutely >>AVOID clonidine d/t rebound HTN potential >>continue close monitoring; may need ICU transfer and HTN emergency tx if develops confusion, seizure, chest pain, dypsnea, focal numbness/weakness >goal is to bring SBP to 160s over DAYS Attempted to reach pt's at pt request to update her but no answer; left VM on secure line w/o pt identifiers. Care coordinated w/ Dr Lopez regarding dx, medications, aldosteronism w/u and we are in agreement. I spent a total of 70 minutes coordinating, documenting, and providing care for this patient excluding time spent in the performance of separately billed services. This included personally reviewing all current laboratories and imaging studies, medication reconciliation, outpatient chart review, and discussion with other physicians, with nursing, and as applicable with the patient and family (2) Abnormal renal function: his renal function has been labile these 3 days > with creatinine ranging from 1.1-1.4 and consistently w/ hyperkalemia. -reasonable for now to hold lisinopril -likely to worsen given HTN and given new chlorthalidone rx but would continue for now (3) Anxiety: he certainly has true HTN but his anxiety has prevented us from working it up or treating appropriately; low threshold for psych consultation versus starting medication here History of Present Illness Reason for Consultation: resistant HTN Requesting Physician: Dr Lopez Attending Physician: Twan Lopez MD History of Present Illness 43 y/o M whom I'm asked to see for resistant HTN was admitted yesterday afternoon w/ hypertensive urgency and palpitations. PMH includes at least 3 years of anxiety for which he's never had specific treatment or medication and which has been worse past few wks, also high blood pressure on outpatient monotherapy w/ lisinopril. He was also using EtOH every other day (3 beers daily) up until 2-3 weeks back but has since stopped. He was seen in ER on 11/18 with similar concerns > after no acute process was found, his lisinopril was increased to 20 mg daily and he was started on low dose long acting metoprolol. He took one dose of this but felt poorly and came back to ER for evaluation. He presented with a potassium of 3.1 and 3.2 on both days, incidentally. He is receiving chlorthalidone 50 mg qAM, 40 mEq daily K, nifedipine 60 mg daily, coreg 12.5 mg bid; his lisinopril has been stopped as has nitro paste. He had one dose of prn labetalol 10 mg iv; has also had ativan x 2 doses He is very anxious he tells me and feels even more anxious every time his BP is checked including in the hospital. The RN today opted to leave BP machine w/ cuff on pt and left the room so that he could hit the button to check bp once he was calmer. SBP have ranged 170s -210s; DBP 90-120s. I arranged for secondary HTN testing this AM including labs and fluids > but pt refused the labs d/t ongoing anxiety he states. no palpitations, no chest pain, no n/v/d, no edema, no confusion, no headache or blurry vision, no sinus issues. no f/c or recent infection. he does endorse 1-2 wks of pleuritic epigastric pain worse with BP checks and relieved by deep breathing. he takes excedrin occasionally for RENDON > last used 1/2 tab a few weeks ago. strong FH in mother siblings of HTN; denies hx of sudden cardiac , stroke, or renal disease. Has been trying to make positive lifestyle changes > walking/exercising past few week and quit EtOH as above; changing to heart healthier diet. Allergies Allergy/AdvReac Type Severity Reaction Status Date / Time No Known Allergies Allergy Unverified 11/19/23 11:54 Home Medications Medication Instructions Recorded Confirmed Type lisinopril 10 mg tablet 20 mg PO QAM 11/19/23 11/20/23 History magnesium 250 mg tablet 250 mg PO HS 11/19/23 11/20/23 History metoprolol succinate 25 mg 25 mg PO QPM 16 days #16 tabs 11/19/23 11/20/23 Rx tablet,extended release 24 hr multivitamin 1 tab PO QAM 11/19/23 11/20/23 History Patient History Medical History (Updated 11/21/23 @ 17:44 by Ella Carvajal MD, PhD) History of ETOH abuse Anxiety LVH (left ventricular hypertrophy) On ECG Heart palpitations Hypertension Family History Other Hypertension Social History (Updated 11/20/23 @ 15:14 by Latrice Cantor PA-C) Smoking Status: Never smoker Second Hand Exposure: No; Do You Dip or Chew Tobacco: No; Tobacco Cessation Education Requested by Patient: No Hx Alcohol Use: Yes Alcohol type: beer Hx Substance Use: No Preferred Language: Welsh Communication Ability: Effective Process Controls Technician Required: No Beliefs That Will Affect Care: None Current Living Situation: Spouse and Family Other Information That Helps Us Care for You: No Feels Safe at Home: Yes Safety Concerns: Feels Safe At This Time Assistive Devices: None Review of Systems 2 Review of Systems: All systems reviewed & are unremarkable except as noted in HPI & below Physical Exam 2 Constitutional: well developed, well nourished, + acute distress (mild d/t anxiety), average body habitus and cooperative Eyes: EOM intact bilaterally ENMT: Ears: no external ear abnormality Nose: no external nose abnormality Mouth: + dry oral mucous membranes Neck: no nuchal rigidity Respiratory: normal respiratory effort Auscultation: + diminished lung sounds Cardiovascular: RRR, no murmur, no edema Gastrointestinal (Abdomen): Inspection/Auscultation: normal bowel sounds P ercussion/Palpation: abdomen soft; abdomen nontender Musculoskeletal: Extremities: strength 5/5 throughout Skin: no rashes, warm and dry Neurologic: de la cruz, fluent speech, no tremor Psychiatric: Orientation: alert and oriented x 3 Speech: normal rate/rhythm/volume of speech Affect: + anxious affect Results & Data Vital Signs (Past 12 Hours) Vital Signs Temp Pulse Pulse Resp BP BP BP 11/21/23 09:01 87 166/82 H 11/21/23 07:38 11/21/23 07:38 94 H 11/21/23 06:03 189/98 H 11/21/23 04:10 37.2 C 97 H 20 157/93 H 11/20/23 23:49 36.7 C 75 20 181/100 H 11/20/23 22:01 68 11/20/23 21:45 66 172/116 H 11/20/23 21:42 66 172/116 H 11/20/23 21:21 72 209/119 H 11/20/23 21:07 209/119 H Pulse Ox O2 Del Method 11/21/23 09:01 11/21/23 07:38 Room Air 11/21/23 07:38 11/21/23 06:03 11/21/23 04:10 96 Room Air 11/20/23 23:49 96 Room Air 11/20/23 22:01 11/20/23 21:45 11/20/23 21:42 11/20/23 21:21 11/20/23 21:07 Laboratory Results 11/21/23 06:12 11/21/23 06:12 tox screen negative x 2 UA 1+ ketones
[2023-11-21] MEDS: ALPRAZolam 0.25 MG TABLET PO ONE (14:34)
--- NOTE | 2023-11-21 16:12 | Hospitalist Progress Note ---
Date of Service November 21, 2023 Assessment & Plan (1) Hypertensive urgency: Plan: Patient presented with persistently elevated blood pressure Was recently started on lisinopril and metoprolol as outpatient Renal duplex was done; technically nondiagnostic evaluation of renal artery stenosis Echocardiogram shows moderate concentric LVH, grade 1 diastolic dysfunction with EF of 60 to 65%. Mild aortic root dilation High sensitive troponin negative Discussed with nephrology; anxiety might be contributing to elevation of the blood pressure. Plan to obtain renal/aldosterone level. recommend psych evaluation. Currently on lisinopril, chlorthalidone. Will add Coreg 12.5 mg twice a day. Mild elevation in the creatinine; encouraged oral hydration BMP tomorrow a.m. (2) Anxiety: Plan: - Psychiatry consulted; appreciate recommendation (3) Acute hypokalemia: Plan: - 3.2 on admission, Continue potassium chloride 40 mEq (4) Obesity (BMI 30.0-34.9): Plan: - Pt physically fit, encourage continuation of exercise and diet - BMI of 32.6 DVT ppx: teds, scds, encourage ambulation Lines: 1 PIV FEN/GI: Heart healthy diet CODE: Full code Discussed plan of care with at bedside. She is agreeable with the plan Time spent evaluating patient, direct bedside care, chart review, placing orders, interpretation of diagnostic studies, discussion with consultants, patient, and family members, as well as other required patient management a ctivities is 50 minutes Please note the above document was generated using voice recognition software. It may contain grammatical, syntax or spelling errors. Any formal questions or concerns about the content, text or information contained within the body of this dictation should be directly addressed to the provider for clarification Admission and Anticipated Discharge Date Admission Date: November 20, 2023 Subjective Patient seen and examined at bedside multiple times during the day His blood pressure continues to be elevated. He reports feeling anxious. He denies any chest pain Review of Systems Review of Systems: All systems reviewed & are unremarkable except as noted in Subjective Physical Exam Physical Exam: Constitutional: WD/WN, vitals as above, NAD, sitting up in bed, pleasant, conversing easily Respiratory: normal respiratory effort, lungs clear to auscultation, no wheeze, rales, rhonchi. Normal insp/exp effort, no accessory muscle use Cardiovascular: RRR, no murmur, no edema Vessels: no JVD or carotid bruit Chest: normal inspection of chest Abdomen: normal bowel sounds, soft, nontender, no hepatosplenomegaly Musculoskeletal: no cyanosis or clubbing, extremities motor strength 5/5 Skin: no rashes, warm and dry normal turgor Neurologic: PERRL, EOMI, accommodation nl, no face palsy, no dysarthria CN's II- XI intact bilaterally and moves all extremities Psychiatric: A+Ox3, euthymic affect Results & Data Results & Data Vital Signs (Past 12 Hours) Vital Signs Temp Pulse Pulse Resp BP BP Pulse Ox 11/21/23 15:52 36.9 C 117 H 16 178/111 H 179/129 H 96 11/21/23 13:08 198/156 H 11/21/23 11:12 104 H 20 218/151 H 98 11/21/23 09:01 87 166/82 H 11/21/23 07:38 11/21/23 07:38 94 H 11/21/23 06:03 189/98 H 11/21/23 04:10 37.2 C 97 H 20 157/93 H 96 O2 Del Method 11/21/23 15:52 Room Air 11/21/23 13:08 11/21/23 11:12 Room Air 11/21/23 09:01 11/21/23 07:38 Room Air 11/21/23 07:38 11/21/23 06:03 11/21/23 04:10 Room Air
[2023-11-21] MEDS: SODIUM CHLORIDE 0.9% 1,000 ML IV SCH (18:07)
[2023-11-21] MEDS ORDERED: hydrALAZINE HCL 20 MG/ML VIAL IV PRN (18:21)
[2023-11-21] MEDS: NIFEdipine EXTENDED REL 30 MG TABCR PO STA (18:36)
[2023-11-21] MEDS: POTASSIUM CHLORIDE CRTAB 20 MEQ TABCR PO SCH (19:52)
[2023-11-21] MEDS: carvediloL 25 MG TAB PO SCH (19:52)
[2023-11-21] MEDS ORDERED: carvediloL 12.5 MG TAB PO SCH (21:00)
[2023-11-22] MEDS: MELATONIN 3 MG TAB PO PRN (00:03)
[2023-11-22] MEDS: LABETALOL HCL IV 5 MG/ML 20ML IV PRN (00:04)
[2023-11-22] MEDS: LORazepam 0.5 MG in SYRINGE 0.25 ML IV STA (03:13)
[2023-11-22] MEDS: NITROGLYCERIN 2% OINTMENT 30GM TUBE EXT SCH (03:14)
[2023-11-22] MEDS ORDERED: NITROGLYCERIN 2% OINTMENT 30GM TUBE EXT SCH (03:15)
[2023-11-22] MEDS: SODIUM CHLORIDE 0.9% 1,000 ML IV SCH (08:16)
[2023-11-22] MEDS: NIFEdipine EXTENDED REL 30 MG TABCR PO SCH (08:22)
[2023-11-22 08:52] LABS: BUN Creatinine Ratio 12.3 (10-20); Calcium 10.3 mg/dl (8.6-10.3); Creatinine Clr Calc Pharmacy 112.7 ml/min; Est GFR (African American) 91.4 ml/min; Est GFR (Non-African American) 78.9 ml/min; Potassium 3.8 mmol/L (3.5-5.1)
[2023-11-22 09:07] LABS: Thyroid Stimulating Hormone 2.116 uIu/ml (0.300-4.500)
--- NOTE | 2023-11-22 09:36 | Nephrology Progress Note ---
Date of Service November 22, 2023 Assessment & Plan (1) Hypertensive urgency: Plan: uncontrolled HTN w/ palpitations and anxiety; also w/ spontaneous /inappropriate hypokalemia and on ECG w/ moderate CLVH, indicating possible secondary component as well as several years of uncontrolled HTN respectively; will work to complete or at least start evaluation for end organ damage and consider given hypokalemia secondary causes. would not call this resistant HTN just yet and likely will not be able to parse that dx this admission but only once anxiety controlled. -lipids and TSH ok his anxiety is impeding care for and control of HTN; he tells me he wants to be healthy, take steps to improve BP but has extreme anxiety w/ BP checks and w/ tests as OP and in hospital -prot/creat ordered though will be abnormal w/ HTN -have ordered spot cecilia/renin ratio and saline suppression test to eval for aldosteronism this am but he refused labs at first (second day in a row) though after much persuasion agreed to lab draw this AM >>yesterday he refused saline suppression test (involves receiving IV fluids for 4 hrs in super vised environment (d/t HTN and need to be seated) then repeat labs) >> b/c the test checks hormone levels needs to be done 0800-noon. After he refused test yesterday, I explained rationale to pt and he agreed to the test for today but then this am again d/t anxiety refused. -hold beta blockers and given mild hyponatremia and tendency to low K hold chlorthalidone at d/c >>reviewed w/ pt and to seek emergency medical care if develops confusion, seizure, chest pain, dypsnea, focal numbness/weakness; other concerning symptoms >goal is to bring SBP to 160s over DAYS Attempted to reach pt's at pt request to update her 11/20 PM but no answer; left VM on secure line w/o pt identifiers. Spoke at length to pt and today regarding labs, medications, test results, follow up plan. Care coordinated w/ Dr Lopez regarding dx, medications, aldosteronism w/u and we are in agreement. NEPHRO D/C RECS: -I will refer him to remote HTN monitoring program > they will mail pt validated upper arm cuff which forwards BP to nurse/pharmacist team along w/ me and we follow BP and sx -he needs hospital d/c appt w/ me in 10-14 days; needs BMP, ACR, UACM, mag 2-3 days before visit > renal nurse to order labs -recommend DASH diet or Mediterranean diet at d/c -continue to avoid alcohol -no NSAIDS -walk daily at least 5000 steps and 7000 is better -would d/c on nifedipine 90 mg daily as well as lisinopril 20 mg daily and K 20 mEq twice daily -avoid clonidine and spironolactone and beta blockers for now -f/u closely w/ pcp -continue to treat anxiety acutely and chronically; recommend work w/ psych and PCP to get a counsellor I spent a total of 70 minutes coordinating, documenting, and providing care for this patient excluding time spent in the performance of separately billed services. This included personally reviewing all current laboratories and imaging studies, medication reconciliation, outpatient chart review, and discussion with other physicians, with nursing, and as applicable with the patient and family (2) Abnormal renal function: Plan: his renal function has been labile these 3 days > with creatinine ranging from 1.1-1.4 and consistently w/ hyperkalemia. -reasonable for now to hold lisinopril -likely to worsen given HTN and given new chlorthalidone rx but would continue for now >today renal function improved/at lower end of range we've seen (3) Anxiety: Plan: he certainly has true HTN but his anxiety has repeatedly and in large part prevented us from even approaching the issue, let alone working it up or treating appropriately; await psych recommendations; he will presumably need longer term OP care on this Admission and Anticipated Discharge Date Admission Date: November 20, 2023 Subjective feeling very anxious today; barely able to do labs after persuasion; unable to do saline test; seen at bedside w/ and daughters; Dr Lopez joins for some of conversation. no chest pain sob n/v focal numbness /weakness or confusion. desires d/c [facility] Review of Systems 2 Review of Systems: All systems reviewed & are unremarkable except as noted in Subjective Physical Exam 2 Constitutional: well developed, well nourished, + acute distress (mild d/t anxiety), average body habitus and cooperative Eyes: EOM intact bilaterally ENMT: Ears: no external ear abnormality Nose: no external nose abnormality Mouth: + dry oral mucous membranes Neck: no nuchal rigidity Respiratory: normal respiratory effort Auscultation: + diminished lung sounds Cardiovascular: Rate/Rhythm: regular rhythm and + tachycardic Heart Sounds: no murmur Extremities: no edema Gastrointestinal (Abdomen): Inspection/Auscultation: normal bowel sounds P ercussion/Palpation: abdomen soft; abdomen nontender Musculoskeletal: Extremities: strength 5/5 throughout Skin: no rashes, warm and dry Psychiatric: Orientation: alert and oriented x 3 Speech: normal rate/rhythm/volume of speech Affect: + anxious affect Results & Data Vital Signs (Past 12 Hours) Vital Signs Temp Pulse Pulse Resp BP BP Pulse Ox 11/22/23 08:09 36.9 C 97 H 20 186/139 H 97 11/22/23 07:49 11/22/23 07:11 94 H 11/22/23 04:39 88 167/111 H 11/22/23 03:05 88 173/125 H 11/22/23 02:46 36.4 C L 101 H 179/140 H 97 11/21/23 23:44 105 H 168/111 H 11/21/23 23:01 36.7 C 94 H 16 180/129 H 95 11/21/23 22:50 86 O2 Del Method 11/22/23 08:09 Room Air 11/22/23 07:49 Room Air 11/22/23 07:11 11/22/23 04:39 11/22/23 03:05 11/22/23 02:46 11/21/23 23:44 11/21/23 23:01 Room Air 11/21/23 22:50 Laboratory Results 11/21/23 06:12 11/22/23 08:09
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
[2023-11-22 11:30] LABS: Creatinine Urine Random 66.6 mg/dl; Protein Creatinine Ratio Urine 0.1 (0-0.2); Total Protein Urine Random 5.6 mg/dl (0-11.9)
--- NOTE | 2023-11-22 13:52 | Discharge Summary ---
Date of Service November 22, 2023 Admission HPI Per Admitting Provider This is a 43 yo M with PMHx of obesity with BMI of 32, hypertension, who presents to the hospital with complaints of palpitation for the past few days. Pt was here in the ER yesterday where EKG was completed, BP was elevated, and pt was treated with lisinopril 20 mg and metoprolol succinate 25 mg QPM to help with palpitation sensation, and was discharged home. He is also previously prescribed chlorthalidone as outpatient years ago but is not taking this currently. 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 He reports "I feel like I am having a panic attack" during my interview. He states that his chest palpitations and heaviness last for about 1 minute earlier this morning dealing with stressful conversation at home, at that point he felt nauseous but did not vomit, patient went to a quieter space and did deep breathing and it resolved. He states that specifically has had palpitations in the past 4 days and is unable to sleep due to such. He reports having started to exercise and eat healthier since August, he is currently able to run 4 miles every other day on a treadmill with a running 5-minute walk 5-minute pattern for at least 40 minutes. He denies ever having any chest pain, palpitations or shortness of breath during these exercise routines. He does not smoke tobacco or marijuana, no illicit drug use, no alcohol use. Patient reports being told he had high blood pressure in his early 30s but was not on chronic blood pressure medication. He also notes that he has multiple family members with high blood pressure and they are maintained on medicine. Denies any primary relatives with NH/stroke. In regards to his anxiety, patient feels that this is acutely stressful right now, he has never been on any medication for anxiety or panic attack in the past. Patient denies anhedonia, suicidal or homicidal ideation. We discussed having a therapist versus a counselor at bedside, and he is open to the idea of discussion with licensed therapist/professional for being able to discuss his stressful life situations without affecting his spouse or his children. Admission Exam Per Admitting Provider General: awake, alert, no apparent distress, physically fit black male Head: Normocephalic, atraumatic ENT: PERRL, EOMI, no pharyngeal exudate, mucous membranes moist Chest: Clear to auscultation, on room air, no adventitious breath sounds Cardiac: Regular rate and rhythm, few extra beats, no murmur, no JVD, normal peripheral pulses, good capillary refill Abdominal: NABS x 4 quadrants, soft, nondistended, nontender to palpation, no rebound or guarding Extremities: Normal inspection, no peripheral edema or erythema, calfs nontender to palpation Psych: Normal mood and affect Neuro: AAO x 3, strength intact bilaterally and rated 5/5, no motor deficits, speech is clear, no peripheral sensory deficits Principal Diagnosis Hypertensive urgency Generalized anxiety disorder Discharge Exam Constitutional: WD/WN, vitals as above, NAD, sitting up in bed, pleasant, conversing easily Respiratory: normal respiratory effort, lungs clear to auscultation, no wheeze, rales, rhonchi. Normal insp/exp effort, no accessory muscle use Cardiovascular: RRR, no murmur, no edema Vessels: no JVD or carotid bruit Chest: normal inspection of chest Abdomen: normal bowel sounds, soft, nontender, no hepatosplenomegaly Musculoskeletal: no cyanosis or clubbing, extremities motor strength 5/5 Skin: no rashes, warm and dry normal turgor Neurologic: PERRL, EOMI, accommodation nl, no face palsy, no dysarthria CN's II- XI intact bilaterally and moves all extremities Psychiatric: A+Ox3, euthymic affect Discharge Data Allergies Allergy/AdvReac Type Severity Reaction Status Date / Time No Known Allergies Allergy Unverified 11/19/23 11:54 Consultations 11/20/23 14:02 ED Decision to Admit Stat 11/21/23 07:51 Consult Nephrology Routine 11/21/23 13:11 Consult Psychiatry Routine Ordered Studies 11/20/23 10:24 CT head/brain wo con Stat 11/20/23 15:21 US doppler renal [US duplex renal artery] Routine Hospital Course (1) Hypertensive urgency: (2) Anxiety: (3) Acute hypokalemia: (4) Obesity (BMI 30.0-34.9): Patient presented with persistently elevated blood pressure Was recently started on lisinopril and metoprolol as outpatient Renal duplex was done; technically nondiagnostic evaluation of renal artery stenosis Echocardiogram shows moderate concentric LVH, grade 1 diastolic dysfunction with EF of 60 to 65%. Mild aortic root dilation High sensitive troponin negative During the hospitalization, patient was started on nifedipine, chlorthalidone an d Coreg. He was also placed on as needed labetalol as per nephrology Patient was not able to tolerate labetalol; reported dizziness with it. After extensive discussion with nephrology/patient; he was placed on nifedipine 90 mg once a day, lisinopril 20 mg once a day It was thought that part of the high blood pressure is related with anxiety for which psychiatry was consulted. He was started on Lexapro 10 mg once a day; will need to be uptitrated based on response. He was also given prescription for clonazepam as per psychiatry twice a day as well. Patient to follow-up with his primary care doctor. Nephrology to set up remote blood pressure monitoring. Please note the above document was generated using voice recognition software. It may contain grammatical, syntax or spelling errors. Any formal questions or concerns about the content, text or information contained within the body of this dictation should be directly addressed to the provider for clarification Total Time Total Time Spent Total Time Spent (In Minutes): 45 Total Time Includes: Examination of the Patient, Discharge Planning, Medication Reconciliation, Communication With Other Providers and Other Discharge Plan Discharge Items Patient Disposition: Home - Self-Care Reason For Visit: HTN URGENCY Discharge Diagnosis: Hypertensive Urgency Generalized anxiety disorder Activity: Resume your previous activity Non-emergency contact: Primary Care Provider Call non-emergency contact if: you have any medication questions, your symptoms worsen and you have a fever Follow-up/Referrals: Jayson Casanova MD [Primary Care Provider] - (Date & Time 11/27/2023 11:00 AM Provider Jayson Casanova MD Department Family [facility] ) Diet: Regular Addtl Attending Provider Instructions: You were admitted to the hospital for high blood pressure. Your evaluated by nephrology during the hospitalization. They recommend following medication: 1) Nifedipine 90 mg once a day 2) Lisinopril 20 mg once a day Please continue to monitor your blood pressure at home daily and keep a record of it. Please measure your blood pressure with both feet on your ground and your arm rested. You should rest for at least 5 minutes prior to taking your blood pressure. You are also evaluated by psychiatry during the hospitalization. You likely have generalized anxiety disorder. The psychiatrist has recommended following medication: 1) Lexapro 10 mg once a day. The medication takes about 3 to 4 weeks to come into affect. You might need to increase the dosing based on the response. Please discuss that with her primary care doctor regarding dose adjustment 2) Clonazepam 0.5 mg twice a day. You have been prescribed 14 tablets for next 7 days for anxiety. This is a short-term measure to help with your anxiety. If you feel sleepy/groggy; please skip the dose. If you do not tolerate the medication well; stop taking it. Do not drive or ride a bike if this medication is feeling you sleepy, dizzy or lightheaded, clumsy or unable to concentrate. You have follow-up set up with your primary care doctor. Please follow-up with them. Please follow-up with Dr. Erickson from nephrology. Pending Studies at Discharge: No Stand-Alone Forms: [facility], Smoking Cessation Medications and DC Order Prescriptions: New lisinopril 20 mg tablet 20 mg PO DAILY Qty: 30 0RF escitalopram oxalate [Lexapro] 10 mg tablet 10 mg PO DAILY Qty: 30 0RF clonazepam 0.5 mg tablet 0.5 mg PO Q12H 7 Days Qty: 14 0RF nifedipine 90 mg tablet extended release 24hr 90 mg PO DAILY Qty: 30 0RF potassium chloride 20 mEq tablet,ER particles/crystals 20 meq PO BID 30 Days Qty: 60 0RF Continued multivitamin Tablet 1 tab PO QAM magnesium 250 mg Tablet 250 mg PO HS Discontinued lisinopril 10 mg tablet 20 mg PO QAM Rx Instructions: taking two 10 mg tablets for 20 mg dose total until 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 metoprolol succinate 25 mg tablet extended release 24 hr 25 mg PO QPM 16 Days Qty: 16 0RF Patient Comments: Per , in 2019 PCP had pt on chlorthalidone 25 mg, pt took for awhile and bp went back down to normal. Rx Instructions: Per , pt started feeling bad again after taking medication last night. Discharge Orders: Discharge Order (Routine); Ordered 11/22/23 Ordered By: Twan Natarajan/Other Patient Handouts: Hypertension and Kidney Disease, Anxiety Disorders Tx Admission Data Admit Date/Time: 11/20/23 15:09 Attending Provider: Twan Lopez Admit Provider: Miya Stratton Primary Care Provider: Jayson Casanova Other Providers: Miya Stratton; Ella Carvajal; Neville Woodall Japheth E.; Shannan Clayton; Nakia Glover; Sima Birmingham; Sugey Vallejo; Mukul Vega; Jorje Young Jr; Lynsey Wilkinson; Jenny Guerrier Other Interventions: Discharge Summary Assessment (RN) Last Done: 11/22/23 12:05
--- NOTE | 2023-11-22 16:11 | Electrocardiogram Report ---
Test Reason : Blood Pressure : / mmHG Vent. Rate : 089 BPM Atrial Rate : 089 BPM P-R Int : 184 ms QRS Dur : 090 ms QT Int : 364 ms P-R-T Axes : 031 -06 074 degrees QTc Int : 442 ms Poor data quality, interpretation may be adversely affected Normal sinus rhythm Normal ECG When compared with ECG of 20-NOV-2023 10:10, Minimal criteria for Septal infarct are no longer Present Confirmed by Grey Downing ([id number]) on 11/22/2023 4:11:13 PM Referred By: Jayson Casanova Confirmed By:Grey Downing
== END 2023-11-22 12:34 | disposition home or self-care (01) | DRG 305 ==
LOC: ED 10:01 → 2N 15:09 → SUATTDRO 15:09 → 2N 16:21